=== PATIENT | female | born 1995 ===

== ENCOUNTER 2018-05-16 09:40 | Emergency (ER) | payer OTHER ==
[2018-05-16 09:58] VITALS: BP 116/77; PULSE 100; RESP 18; TEMP 97.6; O2SAT 100
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
== END 2018-05-16 11:28 | disposition home or self-care (01) ==
LOC: H.ER 09:40
DX: S80.02XA Contusion of left knee, initial encounter (principal); R42 Dizziness and giddiness; V43.52XA Car driver injured in collision with other type car in traffic accident, initial encounter; Y92.410 Unspecified street and highway as the place of occurrence of the external cause